=== PATIENT | male | born 1980 | race Caucasian/White ===

== ENCOUNTER 2021-11-23 20:07 | Emergency (ER) | payer OTHER ==
[~2021-11-23] VITALS: Ht 172.7 cm; Wt 113.4 kg
[2021-11-23 20:10] VITALS: BP 155/86
--- NOTE | 2021-11-23 20:10 | NUR ---
TO BED VIA WHEELCHAIR
--- NOTE | 2021-11-23 20:20 | NUR ---
Dr. Drew at bedside to exam patient.
--- NOTE | 2021-11-23 20:48 | NUR ---
Patient signs consent for CT scan with contrast.
--- NOTE | 2021-11-23 21:05 | NUR ---
patient is refusing the CT scan and IV insertion. ERMD notified. Addendum: 11/23/21 at 2130 by [email or web address] ERMD saw patient and IV placed. patient would agreed to CT with intravenous contrast
--- NOTE | 2021-11-23 21:13 | NUR ---
FATHER JASMEET CALLED REQUESTING UPDATE [phone] WANTS ETA FOR PICKUP
[2021-11-23] MEDS ORDERED: KETOROLAC 15 MG/ML VIAL IVP ONE (21:20)
--- NOTE | 2021-11-23 21:42 | NUR ---
Patient transfer to radiology dept via gurney with electronics technician.
--- NOTE | 2021-11-23 22:26 | NUR ---
Provided urinal as request.
--- NOTE | 2021-11-23 23:02 | NUR ---
Patient does not wish to proceed with medical care recommended by . Patient given information related to possible complications, up to and including , which could occur as a result of leaving hospital at this time. Patient verbalizes understanding of risks involved leaving against medical advice. Patient has signed AMA form.
== END 2021-11-23 23:02 | disposition left against medical advice (07) ==
LOC: MED 20:07
DX: S83.501A Sprain of unspecified cruciate ligament of right knee, initial encounter (principal); Z88.5 Allergy status to narcotic agent; X58.XXXA Exposure to other specified factors, initial encounter; Y93.89 Activity, other specified; Y92.89 Other specified places as the place of occurrence of the external cause; Y99.8 Other external cause status
CPT/HCPCS: 73562; 73706; 99285; Q0092; J1885

== ENCOUNTER 2022-02-16 03:02 | Emergency (ER) | payer OTHER ==
[~2022-02-16] VITALS: Ht 172.7 cm; Wt 122.5 kg
[2022-02-16 03:07] VITALS: BP 131/91
--- NOTE | 2022-02-16 03:15 | NUR ---
Patient ambulated to bed 3.
[2022-02-16] MEDS ORDERED: methylPREDNISolone SS 125 MG/2 ML VIAL IM ONE (03:20)
[2022-02-16] MEDS ORDERED: ALBUTEROL SULFATE/IPRATROPIU 3 ML SOL IH ONE (03:20)
--- NOTE | 2022-02-16 03:22 | NUR ---
41 YO M BIB SELF WITH C/C OF COUGH AND CONGESTION X5DAYS. PT STATES HE HAS BEEN SPITTING UP WHITE THICK PHELGM. PT'S LUNGS SOUND CLEAR UPON AUSCULTATION. DENIES FEVER. PT STATES HES SMOKES 1PACK OF CIGERETTES PER DAY, HAS BEEN SMOKING WITH COUGH PRESENT. STATES HE FEELS A LITTLE SOB SOMETIMES. DENIES CHEST PAIN. O2 SAT 89-92%, PLACED ON O2 2L VIA NASAL CANULA, ANGELA TO 95%. HX:ANXIETY RX:BUSPIRONE ALLERGY:CODEINE Addendum: 02/16/22 at 0337 by [facility] PT REPORTS BILAT EAR PAIN 03/20. REDNESS PRESENT. EARS ARE HOT TO TOUCH AND TENDER.
--- NOTE | 2022-02-16 03:24 | NUR ---
RT AT BEDSIDE.
[2022-02-16] MEDS ORDERED: AMOXICILLIN 500 MG CAP PO ONE (03:45)
[2022-02-16] MEDS ORDERED: IBUPROFEN 800 MG TAB PO ONE (03:45)
[2022-02-16] MEDS ORDERED: ALBU0.0912 IH (03:52)
[2022-02-16] MEDS ORDERED: AMOX500C25 PO (03:52)
[2022-02-16] MEDS ORDERED: PRED20TA5 PO (03:52)
[2022-02-16 04:14] VITALS: BP 138/84
--- NOTE | 2022-02-16 04:14 | NUR ---
Patient discharged with v/s stable. Written and verbal after care instructions given and explained. Patient alert, oriented and verbalized understanding of instructions. Ambulatory with steady gait. All questions addressed prior to discharge. ID band removed. Patient advised to follow up with PMD. Rx of albuterol, amoxicillin, prednisone given. Patient educated on indication of medication including possible reaction and side effects. Opportunity to ask questions provided and answered.
== END 2022-02-16 04:14 | disposition home or self-care (01) ==
LOC: MED 03:02
DX: J20.9 Acute bronchitis, unspecified (principal); H66.93 Otitis media, unspecified, bilateral; Z88.5 Allergy status to narcotic agent
CPT/HCPCS: 94640; 96372; 99283; J2930